=== PATIENT | male | born 1980 | race Hispanic/Latino ===

== ENCOUNTER 2022-09-13 15:55 | Emergency (ER) | payer OTHER ==
[~2022-09-13] VITALS: Ht 167.6 cm; Wt 86.2 kg
[2022-09-13 16:09] VITALS: BP 155/94
[2022-09-13] MEDS ORDERED: IBUPROFEN 600 MG TABLET PO ONE (16:30)
[2022-09-13] MEDS ORDERED: PREDNISONE 20 MG TABLET PO ONE (16:30)
[2022-09-13] MEDS ORDERED: HYDROCODONE/ACETAMINOPHEN 5/325 MG TAB PO ONE (16:30)
[2022-09-13] MEDS ORDERED: ALLO200T PO (16:46)
[2022-09-13] MEDS ORDERED: PRED20TA3 PO (16:48)
[2022-09-13] MEDS ORDERED: IBUP-2070 PO (16:48)
== END 2022-09-13 17:15 | disposition home or self-care (01) ==
LOC: EDH 15:55
DX: M10.9 Gout, unspecified (principal); M25.572 Pain in left ankle and joints of left foot; Z98.890 Other specified postprocedural states
CPT/HCPCS: 36415; 73600; 84550

== ENCOUNTER 2023-10-06 10:21 | Emergency (ER) | payer OTHER ==
[~2023-10-06] VITALS: Ht 167.6 cm; Wt 86.2 kg
[~2023-10-06 10:21] MED LIST: ALLO200T PO; IBUP-2070 PO; PRED20TA3 PO
[2023-10-06] MEDS: HYDROCODONE/ACETAMINOPHEN 5/325 MG TAB PO ONE (13:16)
[2023-10-06 15:41] VITALS: BP 141/98; PULSE 70; RESP 16; O2SAT 98
[2023-10-06] MEDS: KETOROLAC 60 MG VIAL (30MG/ML) IM ONE (16:07)
[2023-10-06] MEDS ORDERED: TRAM-530 PO (16:10)
[2023-10-06] MEDS ORDERED: IBUP-2070 PO (16:10)
== END 2023-10-06 16:16 | disposition home or self-care (01) ==
LOC: EDH 10:21
DX: S90.111A Contusion of right great toe without damage to nail, initial encounter (principal); Z79.899 Other long term (current) drug therapy; Z98.890 Other specified postprocedural states; X58.XXXA Exposure to other specified factors, initial encounter; Y93.89 Activity, other specified; Y92.89 Other specified places as the place of occurrence of the external cause; Y99.8 Other external cause status
CPT/HCPCS: 99284; 84550; 85651; 36415; 73660; 96372; J1885

== ENCOUNTER 2024-04-22 15:11 | Emergency (ER) | payer OTHER ==
[~2024-04-22] VITALS: Ht 172.7 cm; Wt 81.6 kg
[~2024-04-22 15:11] MED LIST changes: +TRAM-543 PO
--- NOTE | 2024-04-22 15:33 | ERN ---
General Chief Complaint: Knee Injury/Swelling Stated Complaint: RT HIP AND KNEE PAIN Source: patient History of Present Illness Initial Comments PATIENT IS A 43-YEAR-OLD GENTLEMAN COMING IN WITH RIGHT GLUTEAL PAIN RADIATING DOWN THE LEG. PER PATIENT THIS HAS BEEN ONGOING FOR THREE DAYS. HE ALSO STATES THAT HE TRIES FOR CLEFT AND THIS HAS BEEN ADDING TO HIS PAIN IN THAT AREA. HE STATES HE HAS NOT FALLEN OR TRAUMA REPORTED TO THE AREA. 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 10/06/23 Ibuprofen (Ibuprofen) 600 Mg Tablet, 600 MG PO Q6H PRN for PAIN, #30 TAB Prov:YARITZA HANCOCK [facility] 09/13/22 Prednisone (Prednisone) 20 Mg Tablet, 2 TAB PO DAILY for 5 Days, #10 TAB 0 Refills Prov:YARITZA HANCOCK [facility] 09/13/22 Allopurinol (Allopurinol) 200 Mg Tablet, 200 MG PO BID, #60 TAB Prov:YARITZA HANCOCK [facility] 09/13/22 Past Medical History Past Medical History: No Pertinent History, Other Medical History Other: GOUT Past Surgical History: None Surgical History Other: HAND Family History Family History: Negative Social History Social History: ETOH, Lives with family ROS Dictation CONSTITUTIONAL: NO CHILLS, NO FEVER, NO WEAKNESS, NO DIAPHORESIS, NO MALAISE. HEAD/FACE: NO SIGNS OF TRAUMA. EENT: NO EYE PAIN, NO BLURRED VISION, NO TEARING, NO DOUBLE VISION, NO EAR PAIN, NO EAR DISCHARGE, NO NOSE PAIN, NO NASAL CONGESTION, NO THROAT PAIN, NO THROAT SWELLING, NO MOUTH PAIN. RESPIRATORY: NO COUGH, NO ORTHOPNEA, NO SOB, NO STRIDOR, NO WHEEZING. CARDIOVASCULAR: NO CHEST PAIN, NO EDEMA, NO PALPITATIONS, NO SYNCOPE. GASTROINTESTINAL/ABDOMINAL: NO ABDOMINAL PAIN, NO CONSTIPATION, NO DIARRHEA, NO NAUSEA, NO VOMITING. GENITOURINARY: NO ABNORMAL DISCHARGE, NO DYSURIA, NO FREQUENT URINATION, NO HEMATURIA. NO COMPLAINTS OF PAIN IN THE GENITALS. MUSCULOSKELETAL: NO BACK PAIN, NO GOUT, JOINT PAIN, JOINT SWELLING, MUSCLE PAIN, NO MUSCLE STIFFNESS, NO NECK PAIN. INTEGUMENTARY: NO CHANGE IN COLOR, NO CHANGE IN HAIR/NAILS, NO DRYNESS, NO LESION, NO LUMPS, NO RASH. NEUROLOGICAL/PSYCH: NO ANXIETY, NOT DEPRESSED, NO EMOTIONAL PROBLEM, NO HEADACHE, NO NUMBNESS, NO PRE-EXISTING DEFICIT, NO HISTORY OF SEIZURES, NO TREMORS, NO WEAKNESS. HEMATOLOGIC/LYMPHATIC: NOT ANEMIC, NO HISTORY OF BLOOD CLOTS, NO APPARENT BLEEDING, NO BRUISING, GLANDS NOT SWOLLEN. ALL SYSTEMS NEGATIVE, EXCEPT NOTED. Physical Exam Physical Exam Dictation VITAL SIGNS: REVIEWED. GENERAL APPEARANCE: ALERT, ORIENTED X3, NO ACUTE DISTRESS, OBESE. HEAD AND FACE: NON-TRAUMATIC. EYES: PERRL, PINK CONJUNCTIVAS, EYELID NO TRAUMA, ANTERIOR CHAMBER CLEAR. EARS: PINNAS INTACT AND NO SIGNS OF TRAUMA OR ERYTHEMA. EAR CANALS CLEAR AND NO DISCHARGE. TMS NO ERYTHEMA. NOSE: NO DISCHARGE, NO BLEEDING. OROPHARYNX: MOUTH NORMAL, TEETH NO CARIES, TONGUE PINK. PHARYNX CLEAR, NO ERYTHEMA. TONSILS NO EXUDATES, NO ABSCESSES NOTED. MUCOUS MEMBRANE MOIST. NECK: SUPPLE, NON-TENDER, NO THYROMEGALY, NO MASSES, NO JVD, NO BRUITS. BREAST: DEFERRED. CHEST: NO TENDERNESS, NO CREPITUS, NO PARADOXICAL MOVEMENT, NO RETRACTIONS. LUNGS: CLEAR, WELL-VENTILATED, SYMMETRIC, NO RALES, NO WHEEZING, NO RHONCHI, NO STRIDOR, GOOD BREATH SOUNDS BILATERALLY. HEART: REGULAR RATE, REGULAR RHYTHM, NO MURMUR, NO GALLOPS. VASCULAR: NO PERIPHERAL EDEMA. ABDOMEN: SOFT, POSITIVE BOWEL SOUNDS, NONDISTENDED, NO GUARDING, NONTENDER, NO REBOUND, NO MASSES NO HEPATOMEGALY, NO SPLENOMEGALY, NO BENNETT'S SIGN, NO HERNIA S. RECTAL: DEFERRED. GENITAL: DEFERRED. NEUROLOGICAL: NORMAL SPEECH, GROSS MOTOR FUNCTION INTACT, GROSS SENSORY FUNCTION INTACT. MUSCULOSKELETAL: NECK NONTENDER, FULL RANGE OF MOTION, BACK NONTENDER, FULL RANGE OF MOTION. EXTREMITIES: NONTENDER, FULL RANGE OF MOTION. RIGHT PIRIFORMIS MUSCLE TENDERNESS ON PALPATION SKIN: COLOR PINK, DRY, NO TURGOR, NO RASH, NO LACERATIONS, NO ABRASIONS, NO CONTUSIONS. LYMPHATICS: DEFERRED. Results Laboratory and Microbiology Labs Reviewed?: Yes MDM MDM: DIFFERENTIAL DIAGNOSIS: RIGHT-SIDED SCIATICA, PIRIFORMIS, MUSCLE STRAIN, PATIENT IS A 43-YEAR-OLD FEMALE COMING IN TO BE EVALUATED FOR RIGHT LEG PAIN. PER PATIENT SHE HAS BEEN HAVING RIGHT GLUTEAL PAIN FOR THREE DAYS. ON PHYSICAL EXAM TENDERNESS TO THE RIGHT PIRIFORMIS WAS FOUND. PATIENT WAS DIAGNOSED WITH A RIGHT-SIDED SCIATICA AND RIGHT SIDED PIRIFORMIS THIS. ED Course Orders Procedure Category Date Status Time Orphenadrine Citrate PHA 04/22/24 Complete (Norflex) 15:30 Triamcinolone Acet PHA 04/22/24 Complete 40mg/Ml 1ml (Kenalog 15:30 Current Medications Medications (Trade) Dose Ordered Sig/Karena Route PRN Reason Start Time Stop Time Status Last Admin Dose Admin Orphenadrine Citrate (Norflex) 60 mg ONCE ONCE IM 04/22/24 15:30 04/22/24 15:31 DC 04/22/24 16:12 Triamcinolone Acetonide (Kenalog 40) 40 mg ONCE ONCE IM 04/22/24 15:30 04/22/24 15:31 DC 04/22/24 16:12 Vital Signs Date Time Temp Pulse Resp B/P (MAP) Pulse Ox O2 Delivery O2 Flow Rate FiO2 04/22/24 16:17 98.1 80 20 152/94 96 Room Air* 0 21 04/22/24 15:26 98.1 85 20 169/114 96 Room Air 0 DX & DISP Disposition: Discharge Departure Impression: Primary Impression: Sciatica of right side Condition: Stable Additional Instructions: FOLLOW-UP WITH PRIMARY CARE PROVIDER IN 1 TO 2 DAYS. TAKE MEDICATIONS DIRECTED HERE IN THE EMERGENCY ROOM. OKAY TO CONTINUE HOME MEDICATIONS UNLESS OTHERWISE DISCUSSED DURING YOUR VISIT IN THE EMERGENCY ROOM TODAY. RETURN TO YOUR NEAREST EMERGENCY ROOM IF SYMPTOMS WORSEN OR IF THERE IS NO IMPROVEMENT. CALL 911 IF YOU NEED IMMEDIATE ASSISTANCE. TAKE TYLENOL [id number] NEEDED AND IF NO CONTRAINDICATIONS ARE PRESENT. INCREASE ORAL HYDRATION. A WOUND CULTURE OR URINE CULTURE WAS ORDERED HERE IN THE EMERGENCY ROOM DEPARTMENT PLEASE FOLLOW-UP WITH PRIMARY CARE PROVIDER AND ADVISE THEM TO GET REPEAT PORTS FROM OUR FACILITY. IF YOU HAD ANY JORGE A WRAP/SPLINTS THAT WERE APPLIED HERE, PLEASE DO NOT REMOVE THEM UNTIL YOU SEE YOUR PRIMARY CARE OR SPECIALTY. REFERRALS: Referrals: NONE (PCP) LUANNE VALLEJO MD Time of Disposition: 16:29 RICHARD CORONA MD Apr 22, 2024 15:33
[2024-04-22] MEDS: TRIAMCINOLONE ACETONIDE 40 MG/ML 1ML VIAL IM ONE (16:12)
[2024-04-22] MEDS: ORPHENADRINE 60MG/2ML IM ONE (16:12)
[2024-04-22 16:17] VITALS: BP 152/94; PULSE 80; RESP 20; TEMP 98; O2SAT 96
== END 2024-04-22 17:06 | disposition home or self-care (01) ==
LOC: EDH 15:11
DX: M54.31 Sciatica, right side (principal); M10.9 Gout, unspecified; Z79.52 Long term (current) use of systemic steroids; Z79.899 Other long term (current) drug therapy
CPT/HCPCS: 99284; 96372 ×2; J3301; J2360

== ENCOUNTER 2024-09-02 16:50 | Emergency (ER) | payer SELFPAY ==
[~2024-09-02] VITALS: Ht 165.1 cm; Wt 89.8 kg
[2024-09-02 17:23] VITALS: BP 145/90; PULSE 80; RESP 16; TEMP 98.3; O2SAT 98
--- NOTE | 2024-09-02 17:35 | HMCIMG ---
PORTABLE CHEST RADIOGRAPH INDICATION: cough COMPARISON: None FINDINGS: Heart size is normal. The pulmonary vascularity and tiffany appear normal. No abnormal pulmonary parenchymal opacity or consolidation identified. No significant pleural effusion noted. No pneumothorax detected. IMPRESSION: No radiographic evidence for any acute cardiopulmonary process.
[2024-09-02 18:12] LABS: RAPID GROUP A STREP negative (NEGATIVE); SARS-CoV-2, RNA, NAAT NEGATIVE SARS CoV-2 (NEGATIVE)
[2024-09-02 18:17] LABS: INFLUENZA TYPE A Negative For Type A (NEGATIVE); INFLUENZA TYPE B Negative For Type B (NEGATIVE)
[2024-09-02] MEDS: BENZONATATE 100 MG CAPSULE PO STA (18:40)
[2024-09-02] MEDS: HYDROcodone/APAP 5/325 1 TAB TABLET PO STA (18:41)
[2024-09-02] MEDS: ketOROlac 15MG/ML VIAL (15MG/ML) IM STA (18:41)
--- NOTE | 2024-09-02 18:53 | ERN ---
ED Note History of Present Illness Stated Complaint: COLD CANT FIGHT OFF FOR A WEEK Chief Complaint: Cough Time Seen by MD: 16:55 Time Seen by Midlevel: 17:00 Dictation: 44-year-old male with a history of gout, thyroid problems, and sciatica coming in complaining of cough and congestion for two weeks. Denies any chest pain, chest discomfort, shortness a breath, fever, nausea vomiting or diarrhea. Allergies: Coded Allergies: No Known Allergies (Unverified Allergy, Unknown, 09/13/22) Home Meds Active Scripts Ibuprofen (Ibuprofen) 600 Mg Tablet, 600 MG PO Q6H PRN for PAIN, #15 TAB 0 Refills Prov:SILVIO BONE NP 10/06/23 Tramadol HCl/Acetaminophen (Tramadol-Acetaminophn 37.5-325) 37.5 Mg-325 Mg Tablet, 1 EACH PO q8 hours PRN for severe pain, #10 TAB 0 Refills Prov:SILVIO BONE NP 10/06/23 Ibuprofen (Ibuprofen) 600 Mg Tablet, 600 MG PO Q6H PRN for PAIN, #30 TAB Prov:YARITZA HANCOCK [facility] 09/13/22 Prednisone (Prednisone) 20 Mg Tablet, 2 TAB PO DAILY for 5 Days, #10 TAB 0 Refills Prov:YARITZA HANCOCK [facility] 09/13/22 Allopurinol (Allopurinol) 200 Mg Tablet, 200 MG PO BID, #60 TAB Prov:YARITZA HANCOCK [facility] 09/13/22 Past Medical History Past Medical History: Other Additional Past Medical Hx: GOUT, THYROID, SCIATICA PAIN Surgical History: None Surgical History Other: HAND Family History: Negative Social History: ETOH, Lives with family Review of System Dictation Constitutional: Negative for fever,chills, and weight loss Eyes: Negative for injury, pain,redness, and discharge ENT: Negative for injury,pain or swelling Cardiovascular: Negative for chest pain, palpitations, and edema Respiratory: Complaining of cough and congestion Abdomen/GI: Negative for abdominal pain, nausea, vomiting, diarrhea, and constip ation Back: Negative for injury and pain : Negative for injury, bleeding and discharge MS/Extremity: Negative for injury and deformity Skin: Negative for rash, and discoloration Neuro: Negative for headache, weakness, numbness, tingling, and seizure Psych: Negative for suicide ideation, homicidal ideation, and hallucinations Review of Systems: was completed Initial Vital Sign VS Vital Signs Date Time Temp Pulse Resp B/P (MAP) Pulse Ox O2 Delivery O2 Flow Rate FiO2 09/02/24 16:52 98.2 83 16 146/105 97 Room Air 0 09/02/24 17:23 21 Physical Exam Dictation General: awake, alert, NAD Head/Face: Normocephalic, atraumatic Eyes: PERRL, EOMI, vision at baseline ENT: oral cavity clear, TMs clear, no signs of infection Neck: Trachea midline, supple, no nuchal rigidity Cardiovascular: RRR, normal S1/S2, No MRGs, no JVD Respiratory: CTAB, no respiratory distress, No rales or wheezes Abdomen: Soft, non-tender, non-distended, normal bowel sounds, no guarding or rebound. Skin: Warm, dry, normal turgor, no rash MS/Extremity: Pulses equal, no cyanosis, neurovascular intact, FROM Neuro: COAx4, GCS 15, strength 5/5, CN 2-12 intact, normal cerebellar exam, normal gait, Psych: Normal behavior, mood, and affect normal Results (Laboratory/Radiology) Laboratory/Radiology Laboratory Tests Test 09/02/24 17:19 Influenza Type A Antigen Negative For Type A Influenza Type B Antigen Negative For Type B SARS-CoV-2, RNA, NAAT NEGATIVE SARS CoV-2 Group A Streptococcus Rapid negative (NEGATIVE) Labs Reviewed?: Yes X-RAY Comment: [address] [address] IMAGING REPORT Signed PATIENT: JAMES QUICK MR#: [id number] : 1980 SEX: M AGE: 44 LOCATION: ED ORDER 14 STATUS: [facility] REPORT#: [id number] SERVICE 13 REASON: cough ORDERING PHYSICIAN: EWA GUZMAN NP PROCEDURE: CXR1VW - CHEST 1VW PORTABLE CHEST RADIOGRAPH INDICATION: cough COMPARISON: None FINDINGS: Heart size is normal. The pulmonary vascularity and tiffany appear normal. No abnormal pulmonary parenchymal opacity or consolidation identified. No significant pleural effusion noted. No pneumothorax detected. IMPRESSION: No radiographic evidence for any acute cardiopulmonary process. DICTATED BY: ALEXIS KIM MD DATE: 09/02/241732 ELECTRONICALLY SIGNED BY: ALEXIS KIM MD DATE: 09/02/241734 CT Scan Comment: ED Course ED Course Orders Procedure Category Date Status Time Covid Rna Naat LAB 09/02/24 Complete 16:55 Rapid (Group A Strep) LAB 09/02/24 Complete 16:55 Influenza Type A & B, LAB 09/02/24 Complete Rapid 16:55 Chest 1vw RAD 09/02/24 Resulted 17:14 Benzonatate 100 Mg PHA 09/02/24 Complete Capsule (Tessalon 100 18:05 Hydrocodone/Apap PHA 09/02/24 Complete 5/325 (Cosby 5/325mg) 18:05 Ketorolac PHA 09/02/24 Complete Tromethamine 15mg/Ml 18:05 Current Medications Medications (Trade) Dose Ordered Sig/Karena Route PRN Reason Start Time Stop Time Status Last Admin Dose Admin Acetaminophen/ Hydrocodone Bitart (NORco 5/325MG) 1 tab ONCE STAT PO 09/02/24 18:05 09/02/24 18:06 DC 09/02/24 18:41 Benzonatate (Tessalon 100mg Caps) 200 mg ONCE STAT PO 09/02/24 18:05 09/02/24 18:06 DC 09/02/24 18:40 Ketorolac Tromethamine (toRADol) 15 mg ONCE STAT IM 09/02/24 18:05 09/02/24 18:06 DC 09/02/24 18:41 Vital Signs Date Time Temp Pulse Resp B/P (MAP) Pulse Ox O2 Delivery O2 Flow Rate FiO2 09/02/24 17:23 98.2 80 16 145/90 98 Room Air* 0 21 09/02/24 16:52 98.2 83 16 146/105 97 Room Air 0 Medical Decision Making MDM MDM: 44-year-old male with a history of gout, thyroid problems, and sciatica coming in complaining of cough and congestion for two weeks. Denies any chest pain, chest discomfort, shortness a breath, fever, nausea vomiting or diarrhea. Chest x-ray shows no acute findings. Swabs are negative for everything. Discussed findings with the patient. Educated this could be lingering URI and/or bronchitis. Educated to follow up with PCP in 1-2 days and return to the hospital if symptoms worsen. Patient verbalized understanding, answered all questions. Differential diagnosis: Viral syndrome, URI, bronchitis, influenza, COVID, strep Rationale: Tests considered and ordered secondary to shared decision making include: Previous outside records reviewed: Old ER visits. Risk of complication and/or morbidity or mortality of patient management: None Medications-Per medication reconciliation Need for hospitalization: Patient does not meet criteria for hospitalization. Need for emergency major/minor surgery: No There are no social concerns with this patient. Prescription drug management Prescriptions will include symptomatic care Patient's prior external medical records from other ER visits were reviewed by me as indicated. Prior testing and results from previous visits were reviewed. Prior tests were taken into account with medical decision making and resource utilization, independent historian/historians were used to obtain complete medical history. I independently interpreted the test that were performed, results were reviewed by me and considered findings on radiology if ordered. Medical management and examination interpretation discussions were had by me with other qualified healthcare professionals as indicated for the patient's care. DX & DISP Disposition: Discharge Departure Impression: Primary Impression: URI (upper respiratory infection) Condition: Stable Additional Instructions: Your chest x-ray is normal. You do not have any influenza, COVID or strep. This is more likely a viral syndrome viral illness, you can take [id number] medications like Mucinex, Flonase, Sudafed, Tylenol and Motrin. Follow up with your primary doctor in 1-2 days, return to the hospital if you have worsening symptoms. Referrals: TAYLOR BARBOZA MD (PCP) Time of Disposition: 18:52 I have reviewed the case, and I agree with, Diagnosis and Plan EWA GUZMAN NP Sep 02, 2024 18:53
== END 2024-09-02 18:59 | disposition home or self-care (01) ==
LOC: EDH 16:50
DX: J06.9 Acute upper respiratory infection, unspecified (principal); M10.9 Gout, unspecified; Z20.822 Contact with and (suspected) exposure to COVID-19; Z79.52 Long term (current) use of systemic steroids; Z79.899 Other long term (current) drug therapy
CPT/HCPCS: 99284; 71045; 87635; 87880; 87804 ×2; 96372; J1885

== ENCOUNTER 2024-11-29 09:19 | Emergency (ER) | payer SELFPAY ==
[~2024-11-29] VITALS: Ht 172.7 cm; Wt 81.6 kg
[~2024-11-29 09:19] MED LIST changes: +IBUP-1492 PO; -IBUP-2070 PO
[2024-11-29 10:04] LABS: IMMATURE GRANULOCYTE ABSOLUTE 0.04 K/uL (0-1); NUCLEATED RED BLOOD CELLS 0.0 % (0.0-0.19); PLATELET COUNT (AUTO) 198 K/uL (130-400); RED BLOOD CELL COUNT(AUTO) 4.49 MIL/uL (4.50-6.20); RED CELL DISTRIBUTION WIDTH 13.6 % (11.0-15.5); WHITE BLOOD COUNT (AUTO) 7.5 K/uL (4.8-10.8)
[2024-11-29 10:15] LABS: CREATININE 1.1 mg/dL (0.5-1.3); GLOMERULAR FILTR. RATE CALC 84.0 mL/min (>90); GLUCOSE,RANDOM 103.0 mg/dL (70-105); SODIUM SERUM 134.0 mmol/L (136-145); UREA NITROGEN, BLOOD 5.0 mg/dL (7-18)
[2024-11-29] MEDS ORDERED: COLC0.6C3 PO (11:04)
--- NOTE | 2024-11-29 11:04 | ERN ---
ED Note History of Present Illness Stated Complaint: LEFT FOOT PAIN Chief Complaint: FOOT INJURY/PAIN Time Seen by MD: 09:24 Dictation: 44-year-old male with left foot pain history of gouty arthritis patient reports he feels like it flares coming up however he has had no fevers or redness but he is having pain to touch Allergies: Coded Allergies: No Known Allergies (Unverified Allergy, Unknown, 09/13/22) Home Meds Active Scripts Ibuprofen (Ibuprofen) 600 Mg Tablet, 600 MG PO Q6H PRN for PAIN, #15 TAB 0 Refills Prov:SILVIO BONE NP 10/06/23 Tramadol HCl/Acetaminophen (Tramadol-Acetaminophn 37.5-325) 37.5 Mg-325 Mg Tablet, 1 EACH PO q8 hours PRN for severe pain, #10 TAB 0 Refills Prov:SILVIO BONE NP 10/06/23 Ibuprofen (Ibuprofen) 600 Mg Tablet, 600 MG PO Q6H PRN for PAIN, #30 TAB Prov:YARITZA HANCOCK [facility] 09/13/22 Prednisone (Prednisone) 20 Mg Tablet, 2 TAB PO DAILY for 5 Days, #10 TAB 0 Refills Prov:YARITZA HANCOCK [facility] 09/13/22 Allopurinol (Allopurinol) 200 Mg Tablet, 200 MG PO BID, #60 TAB Prov:YARITZA HANCOCK [facility] 09/13/22 Past Medical History Past Medical History: Other Additional Past Medical Hx: GOUT, THYROID, SCIATICA PAIN Surgical History: None Surgical History Other: HAND Family History: Negative Social History: ETOH, Lives with family Review of System Dictation Constitutional: Negative for fever,chills, and weight loss Eyes: Negative for injury, pain,redness, and discharge ENT: Negative for injury,pain or swelling Cardiovascular: Negative for chest pain, palpitations, and edema Respiratory: Negative for shortness of breath, cough, and wheezing, Abdomen/GI: Negative for abdominal pain, nausea, vomiting, diarrhea, and constipation Back: Negative for injury and pain : Negative for injury, bleeding and discharge MS/Extremity: Per HPI Skin: Negative for rash, and discoloration Neuro: Negative for headache, weakness, numbness, tingling, and seizure Psych: Negative for suicide ideation, homicidal ideation, and hallucinations Initial Vital Sign VS Vital Signs Date Time Temp Pulse Resp B/P (MAP) Pulse Ox O2 Delivery O2 Flow Rate FiO2 11/29/24 09:20 97.9 86 16 151/88 96 Room Air 0 11/29/24 09:47 21 Physical Exam Dictation General: awake, alert, NAD Head/Face: Normocephalic, atraumatic Eyes: PERRL, EOMI, vision at baseline ENT: oral cavity clear, TMs clear, no signs of infection Neck: Trachea midline, supple, no nuchal rigidity Cardiovascular: RRR, normal S1/S2, No MRGs, no JVD Respiratory: CTAB, no respiratory distress, No rales or wheezes Abdomen: Soft, non-tender, non-distended, normal bowel sounds, no guarding or rebound. Skin: Warm, dry, normal turgor, no rash MS/Extremity: Pulses equal, no cyanosis, neurovascular intact, FROM, left foot tenderness to palpation Neuro: COAx4, GCS 15, strength 5/5, CN 2-12 intact, normal cerebellar exam, normal gait, Psych: Normal behavior, mood, and affect normal Results (Laboratory/Radiology) Laboratory/Radiology Laboratory Tests Test 11/29/24 09:56 White Blood Count 7.5 K/uL (4.8-10.8) Red Blood Count 4.49 MIL/uL (4.50-6.20) L Hemoglobin 15.9 g/dL (14.0-18.0) Hematocrit 43.9 % (42-54) Mean Corpuscular Volume 97.8 fL (79-99) Mean Corpuscular Hemoglobin 35.4 pg (27.0-33.0) H Mean Corpuscular Hemoglobin Concent 36.2 g/dL (32.0-36.0) H Red Cell Distribution Width 13.6 % (11.0-15.5) Platelet Count 198 K/uL (130-400) Mean Platelet Volume 9.3 fL (7.5-10.5) Immature Granulocyte % (Auto) 0.5 % (0-1) Neutrophils (%) (Auto) 67.4 % (40.0-77.0) Lymphocytes (%) (Auto) 24.3 % (21.0-51.0) Monocytes (%) (Auto) 5.1 % (3.0-13.0) Eosinophils (%) (Auto) 1.9 % (0.0-8.0) Basophils (%) (Auto) 0.8 % (0.0-5.0) Neutrophils # (Auto) 5.0 K/uL (1.8-7.7) Lymphocytes # (Auto) 1.8 K/uL (1.0-4.8) Monocytes # (Auto) 0.4 K/uL (0.1-1.0) Eosinophils # (Auto) 0.14 K/uL (0.00-0.70) Basophils # (Auto) 0.06 K/uL (0.00-0.20) Absolute Immature Granulocyte (auto 0.04 K/uL (0-1) Nucleated Red Blood Cells 0.0 % (0.0-0.19) Red Blood Cell Morphology See comments Sodium Level 134 mmol/L (136-145) L Potassium Level 3.7 mmol/L (3.5-5.1) Chloride Level 95 mmol/L (101-111) L Carbon Dioxide Level 32 mmol/L (21-32) Blood Urea Nitrogen 5 mg/dL (7-18) L Creatinine 1.1 mg/dL (0.5-1.3) Glomerular Filtration Rate Calc 84 mL/min (>90) Random Glucose 103 mg/dL (70-105) Uric Acid 10.6 mg/dL (2.6-7.2) H Total Calcium 8.8 mg/dL (8.5-10.1) Labs Reviewed?: Yes ED Course ED Course Orders Procedure Category Date Status Time Uric Acid LAB 11/29/24 Complete 09:37 Basic Metabolic Panel LAB 11/29/24 Complete 09:37 Cbc With Differential LAB 11/29/24 Complete 09:37 Ketorolac PHA 11/29/24 Complete Tromethamine 15mg/Ml 10:00 Colchicine 0.6mg Tab PHA 11/29/24 Complete (Colchicine 0.6mg T 10:00 Colchicine 0.6mg Tab PHA 11/29/24 Complete (Colchicine 0.6mg T 10:00 Current Medications Medications (Trade) Dose Ordered Sig/Karena Route PRN Reason Start Time Stop Time Status Last Admin Dose Admin Colchicine (COLCHicine 0.6mg TAB) 0.6 mg ONCE PO 11/29/24 10:00 11/29/24 09:43 DC Colchicine (COLCHicine 0.6mg TAB) 0.6 mg ONCE ONCE PO 11/29/24 10:00 11/29/24 10:01 DC 11/29/24 09:49 Ketorolac Tromethamine (toRADol) 15 mg ONCE ONCE IV 11/29/24 10:00 11/29/24 10:01 DC 11/29/24 09:56 Vital Signs Date Time Temp Pulse Resp B/P (MAP) Pulse Ox O2 Delivery O2 Flow Rate FiO2 11/29/24 09:47 97.9 80 16 149/89 97 Room Air* 0 21 11/29/24 09:20 97.9 86 16 151/88 96 Room Air 0 Medical Decision Making MDM MDM: Differential diagnosis: Rationale: Tests considered and ordered secondary to shared decision making include: Previous outside records reviewed: Old ER visits. Risk of complication and/or morbidity or mortality of patient management: None Medications-Per medication reconciliation Need for hospitalization: Patient does not meet criteria for hospitalization. Need for emergency major/minor surgery: No There are no social concerns with this patient. Prescription drug management Prescriptions will include symptomatic care Patient's prior external medical records from other ER visits were reviewed by me as indicated. Prior testing and results from previous visits were reviewed. Prior tests were taken into account with medical decision making and resource utilization, independent historian/historians were used to obtain complete medical history. I independently interpreted the test that were performed, results were reviewed by me and considered findings on radiology if ordered. Medical management and examination interpretation discussions were had by me with other qualified healthcare professionals as indicated for the patient's care. 44-year-old male with gouty arthritis left foot nontoxic the way, ill fever stable for outpatient treatment DX & DISP Disposition: Discharge Departure Impression: Primary Impression: Acute gout of left ankle Condition: Stable Scripts Colchicine (Colchicine) 0.6 Mg Capsule 1 CAP PO DAILY for 30 Days, #30 CAP 0 Refills Prov: JONNA LYN MD 11/29/24 Referrals: TAYLOR BARBOZA MD (PCP) JONNA LYN MD Nov 29, 2024 11:04
[2024-11-29 11:08] VITALS: BP 141/79; PULSE 76; RESP 16; TEMP 97.9; O2SAT 96
== END 2024-11-29 11:14 | disposition home or self-care (01) ==
LOC: EDH 09:19
DX: M10.072 Idiopathic gout, left ankle and foot (principal); Z79.52 Long term (current) use of systemic steroids; Z79.899 Other long term (current) drug therapy
CPT/HCPCS: 99283; 96374; 84550; 80048; 85025; 36415; J1885